=== PATIENT | female | born 1965 | race Caucasian/White ===

== ENCOUNTER 2020-05-10 15:33 | Emergency (ER) | payer MEDICARE ==
[~2020-05-10] VITALS: Ht 152.4 cm; Wt 104.1 kg
[2020-05-10] MEDS ORDERED: ALBUTEROL/IPRATROPIUM 3 ML NEB NEB ONE (16:15)
[2020-05-10] MEDS ORDERED: METHYLPREDNISOLONE SOD SUCC 125 MG/2ML VIAL IV ONE (16:15)
[2020-05-10] MEDS ORDERED: ALBUTEROL/IPRATROPIUM 3 ML NEB ONE (16:23)
[2020-05-10] MEDS ORDERED: METHYLPREDNISOLONE SOD SUCC 125 MG/2ML VIAL ONE (16:23)
[2020-05-10] MEDS ORDERED: COMBIVENT RESPIM4 GM IH ×2 (17:47→18:01)
[2020-05-10] MEDS ORDERED: OZEMPIC1 MG/0.75 SC (17:47)
[2020-05-10] MEDS ORDERED: PROAIR HFA INH8.5 GM (17:47)
[2020-05-10] MEDS ORDERED: CRESTOR10 MG PO (17:47)
[2020-05-10] MEDS ORDERED: SYMBICORT 16010.2 GM INH (17:47)
[2020-05-10] MEDS ORDERED: LISINOPRIL-HCT1 EAC1 (17:47)
[2020-05-10] MEDS ORDERED: HUMALOG MI100 UNIT/3 SQ (17:47)
[2020-05-10] MEDS ORDERED: METOPROLOL TART25 MG PO (17:47)
[2020-05-10] MEDS ORDERED: ESOMEPRAZOLE MA40 MG (17:47)
[2020-05-10] MEDS ORDERED: TRESIBA FL100 UNIT/1 (17:47)
[2020-05-10] MEDS ORDERED: LEVALBUTER1.25 MG/3 INH (17:47)
[2020-05-10] MEDS ORDERED: INVOKANA300 MG (17:48)
[2020-05-10] MEDS ORDERED: VITAMIN B-121000 MC1 PO (17:48)
[2020-05-10] MEDS ORDERED: ABILIFY10 MG PO (17:48)
[2020-05-10] MEDS ORDERED: BUPROPION XL150 MG PO (17:48)
[2020-05-10] MEDS ORDERED: DOXYCYCLINE HY100 MG PO (17:48)
[2020-05-10] MEDS ORDERED: METFORMIN HCL500 M2 PO (17:48)
[2020-05-10] MEDS ORDERED: CELEBREX200 MG PO (17:48)
[2020-05-10] MEDS ORDERED: ALIVE WOMEN'S1 EAC2 (17:48)
[2020-05-10] MEDS ORDERED: LYRICA150 MG PO (17:48)
[2020-05-10] MEDS ORDERED: VASCEPA1 GM (17:48)
[2020-05-10] MEDS ORDERED: VITAMIN D325 MCG (17:48)
[2020-05-10] MEDS ORDERED: CEFTRIAXONE SOD 1 GM/NS 50 ML 50 ML IV ONE (17:59)
[2020-05-10] MEDS ORDERED: AUGMENTIN 500-1 EACH PO (18:00)
[2020-05-10] MEDS ORDERED: CEFTRIAXONE SOD 1 GM VIAL IV ONE (18:00)
[2020-05-10] MEDS ORDERED: PREDNISONE20 MG PO (18:01)
[2020-05-10 18:25] VITALS: BP 146/68
== END 2020-05-10 18:10 | disposition home or self-care (01) ==
LOC: FSED 16:04
DX: J18.9 Pneumonia, unspecified organism (principal); J44.1 Chronic obstructive pulmonary disease with (acute) exacerbation; R06.02 Shortness of breath; E11.65 Type 2 diabetes mellitus with hyperglycemia; I10 Essential (primary) hypertension; Z11.52 Encounter for screening for COVID-19; F17.210 Nicotine dependence, cigarettes, uncomplicated
CPT/HCPCS: 71045; 80053; 82553; 83880; 84484; 85025; 85379; 96374; 99284; J0696; J2930; U0002

== ENCOUNTER 2021-12-22 13:36 | Inpatient (IN) | payer MEDICARE ==
[~2021-12-22] VITALS: Ht 152.4 cm; Wt 98.7 kg
[~2021-12-22 13:36] MED LIST: ABILIFY10 MG PO; ALIVE WOMEN'S1 EAC2; AUGMENTIN 500-1 EACH PO; BUPROPION XL150 MG PO; CELEBREX200 MG PO; COMBIVENT RESPIM4 GM IH; CRESTOR10 MG PO; DOXYCYCLINE HY100 MG PO; ESOMEPRAZOLE MA40 MG; HUMALOG MI100 UNIT/3 SQ; INVOKANA300 MG; LEVALBUTER1.25 MG/3 INH; LISINOPRIL-HCT1 EAC1; LYRICA150 MG PO; METFORMIN HCL500 M2 PO; METOPROLOL TART25 MG PO; OZEMPIC1 MG/0.75 SC; PREDNISONE20 MG PO; PROAIR HFA INH8.5 GM; SYMBICORT 16010.2 GM INH; TRESIBA FL100 UNIT/1; VASCEPA1 GM; VITAMIN B-121000 MC1 PO; VITAMIN D325 MCG
[2021-12-22] MEDS ORDERED: ASPIRIN 325 MG TAB PO ONE (14:00)
[2021-12-22] MEDS ORDERED: IOPAMIDOL 370 MG/ML 100 ML INFUS..BTL INJ ONE (15:08)
[2021-12-22] MEDS ORDERED: ALBUTEROL/IPRATROPIUM 3 ML NEB NEB ONE (15:30)
[2021-12-22] MEDS ORDERED: ALBUTEROL/IPRATROPIUM 3 ML NEB ONE (15:31)
[2021-12-22] MEDS ORDERED: ASPIRIN 325 MG TAB ONE (15:31)
[2021-12-22] MEDS ORDERED: ASPIRIN 81 MG CHEW TAB PO ONE (15:45)
[2021-12-22] MEDS ORDERED: SODIUM CHLORIDE FLUSH 10 ML SYR INJ PRN (15:45)
[2021-12-22] MEDS ORDERED: ONDANSETRON HCL INJ 2MG/ML 2ML 2 MG/ML VIAL IV PRN (15:45)
[2021-12-22] MEDS ORDERED: CEFTRIAXONE 1 GM VIAL ONE (16:18)
[2021-12-22 19:00] VITALS: BP 115/57
[2021-12-22] MEDS ORDERED: DEXTROSE 50% SYRINGE 50 ML IV PRN (19:00)
[2021-12-22] MEDS ORDERED: FUROSEMIDE INJ 10 MG/ML 4 ML VIAL IV ONE (19:20)
[2021-12-22] MEDS: ALBUTEROL SULFATE HFA 8GM INHALATION AEROSOL INH SCH (19:30)
[2021-12-22 20:00] VITALS: BP 114/63
[2021-12-22] MEDS: IPRATROPIUM/ALBUTEROL SULFATE 4 GM INH INH SCH (20:05)
[2021-12-22] MEDS: BUDESONIDE/FORMOTEROL 160/4.5MCG INHALER INH SCH (20:05)
[2021-12-22] MEDS: ACETAMINOPHEN 325 MG TAB PO PRN (20:07)
[2021-12-22 21:00] VITALS: BP 128/59
[2021-12-22] MEDS: SIMVASTATIN 20 MG TAB PO SCH (21:23)
[2021-12-22] MEDS: INSULIN REGULAR, HUMAN 100 UNIT/1 ML SQ SCH (21:26)
[2021-12-22] MEDS: INSULIN GLARGINE 100 UNITS/ML VIAL SQ SCH (21:28)
[2021-12-22 22:00] VITALS: BP 105/61
[2021-12-22 22:04] VITALS: BP 128/59
[2021-12-22 22:49] LABS: CREATINE KINASE MB 0.5 ng/mL (0-5.0)
[2021-12-22 23:00] VITALS: BP 108/67
[2021-12-23] VITALS (18 sets, daily range): BP systolic 91–152; BP diastolic 42–105
[2021-12-23] MEDS: ACETAMINOPHEN 325 MG TAB PO PRN ×2 (06:05→17:43)
[2021-12-23] MEDS: ALBUTEROL SULFATE HFA 8GM INHALATION AEROSOL INH SCH ×4 (07:00→19:00)
[2021-12-23] MEDS: BUDESONIDE/FORMOTEROL 160/4.5MCG INHALER INH SCH ×2 (07:15→19:40)
[2021-12-23] MEDS: IPRATROPIUM/ALBUTEROL SULFATE 4 GM INH INH SCH ×4 (07:15→19:40)
[2021-12-23 07:17] LABS: BASOPHILS % 0.3 % (0.0-1.0); EOSINOPHILS # (AUTO) 0.1 (0.0-0.4); EOSINOPHILS % 0.8 % (0.0-6.0); HEMATOCRIT 37.6 % (34.2-44.1); HEMOGLOBIN 11.5 g/dL (12.0-16.0); LYMPHOCYTES # (AUTO) 0.5 (1.0-3.2); LYMPHOCYTES % 7.7 % (18.0-39.1); MEAN CORPUSCULAR HEMOGLOBIN 28.9 pg (28-32); MEAN CORPUSCULAR HGB CONC 30.6 g/dL (31-35); MEAN CORPUSCULAR VOLUME 94.5 fL (81-99); MONOCYTES # (AUTO) 0.5 (0.2-0.8); MONOCYTES % 7.7 % (4.4-11.3); NEUTROPHILS # (AUTO) 5.1 (2.1-6.9); NEUTROPHILS % 82.7 % (38.7-80.0); PLATELET COUNT 138 x10e3/uL (140-360); RED BLOOD COUNT 3.98 x10e6/uL (3.6-5.1); RED CELL DISTRIBUTION WIDTH 17.1 % (11.7-14.4)
[2021-12-23 07:59] LABS: ALBUMIN 3.3 g/dL (3.5-5.0); ALBUMIN/GLOBULIN RATIO 1.1 (0.8-2.0); ANION GAP 17.9 mmol/L (8-16); CALCIUM 9.3 mg/dL (8.4-10.2); CREATININE, SERUM 0.67 mg/dL (0.57-1.11); POTASSIUM 3.9 mmol/L (3.5-5.1)
[2021-12-23] MEDS: INSULIN REGULAR, HUMAN 100 UNIT/1 ML SQ SCH ×4 (08:12→20:55)
[2021-12-23] MEDS: BUPROPION HCL 150 MG TABCR PO SCH (08:35)
[2021-12-23] MEDS: METOPROLOL TARTRATE 25 MG TAB PO SCH ×2 (08:35→16:46)
[2021-12-23] MEDS: PREGABALIN 75 MG CAP PO SCH ×2 (08:35→16:46)
[2021-12-23] MEDS: CEFTRIAXONE 2 GM in SODIUM CHLORIDE 0.9% 100 ML IV SCH (08:36)
[2021-12-23] MEDS ORDERED: SODIUM CHLORIDE 0.9% 100 ML ONE (08:43)
[2021-12-23 09:18] LABS: CREATINE KINASE MB 0.3 ng/mL (0-5.0)
[2021-12-23 11:06] LABS: INFLUENZAE A&B ANTIGEN (RAPID) NEGATIVE (NEGATIVE)
[2021-12-23 11:07] LABS: RESPIRATORY SYNC. VIRUS NEGATIVE (NEGATIVE)
[2021-12-23] MEDS: FUROSEMIDE INJ 10 MG/ML 4 ML VIAL IV SCH ×2 (11:46→16:46)
[2021-12-23] MEDS: FAMOTIDINE 20 MG TAB PO SCH (11:46)
[2021-12-23] MEDS ORDERED: IOPAMIDOL 370 MG/ML 100 ML INFUS..BTL INJ ONE (15:47)
[2021-12-23] MEDS: ENOXAPARIN SOD INJ 40 MG/0.4 ML SYR SC SCH (16:45)
[2021-12-23 19:25] LABS: CREATINE KINASE MB 0.4 ng/mL (0-5.0)
[2021-12-23] MEDS: SIMVASTATIN 20 MG TAB PO SCH (20:48)
[2021-12-23] MEDS: INSULIN GLARGINE 100 UNITS/ML VIAL SQ SCH (20:56)
[2021-12-24 06:16] VITALS: BP 131/71
[2021-12-24] MEDS: IPRATROPIUM/ALBUTEROL SULFATE 4 GM INH INH SCH ×4 (07:20→19:48)
[2021-12-24] MEDS: ALBUTEROL SULFATE HFA 8GM INHALATION AEROSOL INH SCH ×4 (07:20→19:48)
[2021-12-24 07:36] LABS: BASOPHILS % 0.6 % (0.0-1.0); EOSINOPHILS # (AUTO) 0.1 (0.0-0.4); EOSINOPHILS % 0.7 % (0.0-6.0); HEMOGLOBIN 11.5 g/dL (12.0-16.0); LYMPHOCYTES # (AUTO) 0.6 (1.0-3.2); LYMPHOCYTES % 8.6 % (18.0-39.1); MEAN CORPUSCULAR HEMOGLOBIN 28.6 pg (28-32); MEAN CORPUSCULAR HGB CONC 31.9 g/dL (31-35); MEAN CORPUSCULAR VOLUME 89.6 fL (81-99); MONOCYTES # (AUTO) 0.6 (0.2-0.8); MONOCYTES % 8.7 % (4.4-11.3); NEUTROPHILS # (AUTO) 5.4 (2.1-6.9); NEUTROPHILS % 80.7 % (38.7-80.0); PLATELET COUNT 159 x10e3/uL (140-360); RED BLOOD COUNT 4.02 x10e6/uL (3.6-5.1); RED CELL DISTRIBUTION WIDTH 16.6 % (11.7-14.4)
[2021-12-24] MEDS: BUDESONIDE/FORMOTEROL 160/4.5MCG INHALER INH SCH ×2 (07:40→19:48)
[2021-12-24] MEDS: FAMOTIDINE 20 MG TAB PO SCH ×2 (07:44→09:42)
[2021-12-24] MEDS: ACETAMINOPHEN 325 MG TAB PO PRN ×2 (07:52→20:28)
[2021-12-24] MEDS: INSULIN REGULAR, HUMAN 100 UNIT/1 ML SQ SCH ×4 (07:55→20:28)
[2021-12-24 08:29] LABS: ALBUMIN 3.1 g/dL (3.5-5.0); ALBUMIN/GLOBULIN RATIO 0.8 (0.8-2.0); ANION GAP 19.6 mmol/L (8-16); CALCIUM 9.3 mg/dL (8.4-10.2); CREATININE, SERUM 0.68 mg/dL (0.57-1.11); POTASSIUM 4.6 mmol/L (3.5-5.1)
[2021-12-24 08:31] VITALS: BP 114/58
[2021-12-24] MEDS: BUPROPION HCL 150 MG TABCR PO SCH (09:41)
[2021-12-24] MEDS: CEFTRIAXONE 2 GM in SODIUM CHLORIDE 0.9% 100 ML IV SCH (09:41)
[2021-12-24] MEDS: FUROSEMIDE INJ 10 MG/ML 4 ML VIAL IV SCH ×2 (09:42→17:40)
[2021-12-24] MEDS: METOPROLOL TARTRATE 25 MG TAB PO SCH ×2 (09:42→17:00)
[2021-12-24] MEDS: PREGABALIN 75 MG CAP PO SCH ×2 (09:42→17:39)
[2021-12-24 12:29] VITALS: BP 108/57
[2021-12-24 16:46] VITALS: BP 103/57
[2021-12-24] MEDS: ENOXAPARIN SOD INJ 40 MG/0.4 ML SYR SC SCH (17:39)
[2021-12-24 20:00] VITALS: BP 118/51
[2021-12-24] MEDS: SIMVASTATIN 20 MG TAB PO SCH (20:28)
[2021-12-24] MEDS: INSULIN GLARGINE 100 UNITS/ML VIAL SQ SCH (20:28)
[2021-12-24 21:00] VITALS: BP 118/51
[2021-12-25] VITALS (8 sets, daily range): BP systolic 103–121; BP diastolic 50–72
[2021-12-25 05:30] LABS: ANION GAP 16.4 mmol/L (8-16); CALCIUM 9.3 mg/dL (8.4-10.2); CREATININE, SERUM 0.66 mg/dL (0.57-1.11); POTASSIUM 3.4 mmol/L (3.5-5.1)
[2021-12-25] MEDS: IPRATROPIUM/ALBUTEROL SULFATE 4 GM INH INH SCH ×4 (06:32→19:53)
[2021-12-25] MEDS: BUDESONIDE/FORMOTEROL 160/4.5MCG INHALER INH SCH ×2 (06:32→19:53)
[2021-12-25] MEDS: ALBUTEROL SULFATE HFA 8GM INHALATION AEROSOL INH SCH ×4 (07:00→19:00)
[2021-12-25] MEDS: METOPROLOL TARTRATE 25 MG TAB PO SCH ×2 (09:00→17:19)
[2021-12-25] MEDS: PREGABALIN 75 MG CAP PO SCH ×2 (09:04→17:18)
[2021-12-25] MEDS: FAMOTIDINE 20 MG TAB PO SCH (09:04)
[2021-12-25] MEDS: FUROSEMIDE INJ 10 MG/ML 4 ML VIAL IV SCH ×2 (09:04→17:19)
[2021-12-25] MEDS: BUPROPION HCL 150 MG TABCR PO SCH (09:05)
[2021-12-25] MEDS: INSULIN REGULAR, HUMAN 100 UNIT/1 ML SQ SCH ×4 (09:07→20:55)
[2021-12-25] MEDS ORDERED: POTASSIUM CHLORIDE 10MEQ EA PO ONE (15:00)
[2021-12-25] MEDS: ENOXAPARIN SOD INJ 40 MG/0.4 ML SYR SC SCH (17:18)
[2021-12-25] MEDS: SIMVASTATIN 20 MG TAB PO SCH (20:51)
[2021-12-25] MEDS: INSULIN GLARGINE 100 UNITS/ML VIAL SQ SCH (20:56)
[2021-12-26] VITALS (8 sets, daily range): BP systolic 114–130; BP diastolic 49–70
[2021-12-26] MEDS: ACETAMINOPHEN 325 MG TAB PO PRN (05:09)
[2021-12-26 06:37] LABS: BASOPHILS % 0.3 % (0.0-1.0); EOSINOPHILS # (AUTO) 0.1 (0.0-0.4); EOSINOPHILS % 3.5 % (0.0-6.0); HEMATOCRIT 33.8 % (34.2-44.1); HEMOGLOBIN 10.3 g/dL (12.0-16.0); LYMPHOCYTES # (AUTO) 0.5 (1.0-3.2); LYMPHOCYTES % 12.3 % (18.0-39.1); MEAN CORPUSCULAR HEMOGLOBIN 28.5 pg (28-32); MEAN CORPUSCULAR HGB CONC 30.5 g/dL (31-35); MEAN CORPUSCULAR VOLUME 93.6 fL (81-99); MONOCYTES # (AUTO) 0.4 (0.2-0.8); NEUTROPHILS # (AUTO) 2.7 (2.1-6.9); NEUTROPHILS % 72.4 % (38.7-80.0); PLATELET COUNT 176 x10e3/uL (140-360); RED BLOOD COUNT 3.61 x10e6/uL (3.6-5.1); RED CELL DISTRIBUTION WIDTH 16.1 % (11.7-14.4)
[2021-12-26] MEDS: IPRATROPIUM/ALBUTEROL SULFATE 4 GM INH INH SCH ×4 (06:37→19:52)
[2021-12-26] MEDS: BUDESONIDE/FORMOTEROL 160/4.5MCG INHALER INH SCH ×2 (06:37→19:52)
[2021-12-26] MEDS: ALBUTEROL SULFATE HFA 8GM INHALATION AEROSOL INH SCH ×4 (06:38→17:58)
[2021-12-26 06:55] LABS: ALBUMIN 2.7 g/dL (3.5-5.0); ALBUMIN/GLOBULIN RATIO 0.7 (0.8-2.0); ANION GAP 20.4 mmol/L (8-16); CREATININE, SERUM 0.67 mg/dL (0.57-1.11); POTASSIUM 3.4 mmol/L (3.5-5.1)
[2021-12-26] MEDS: METOPROLOL TARTRATE 25 MG TAB PO SCH ×2 (09:00→16:59)
[2021-12-26] MEDS: FUROSEMIDE INJ 10 MG/ML 4 ML VIAL IV SCH ×2 (09:09→16:59)
[2021-12-26] MEDS: BUPROPION HCL 150 MG TABCR PO SCH (09:10)
[2021-12-26] MEDS: PREGABALIN 75 MG CAP PO SCH ×2 (09:10→16:58)
[2021-12-26] MEDS ORDERED: POTASSIUM CHLORIDE 10MEQ EA PO ONE (10:30)
[2021-12-26] MEDS: INSULIN REGULAR, HUMAN 100 UNIT/1 ML SQ SCH ×4 (10:35→21:23)
[2021-12-26] MEDS: IBUPROFEN 600 MG TAB PO PRN (14:22)
[2021-12-26] MEDS: SIMVASTATIN 20 MG TAB PO SCH (20:59)
[2021-12-26] MEDS ORDERED: INSULIN GLARGINE 100 UNITS/ML VIAL SQ SCH (21:00)
[2021-12-27] VITALS (8 sets, daily range): BP systolic 112–134; BP diastolic 49–63
[2021-12-27] MEDS: ALBUTEROL SULFATE HFA 8GM INHALATION AEROSOL INH SCH ×4 (07:00→19:00)
[2021-12-27] MEDS: BUDESONIDE/FORMOTEROL 160/4.5MCG INHALER INH SCH ×2 (07:09→19:25)
[2021-12-27] MEDS: IPRATROPIUM/ALBUTEROL SULFATE 4 GM INH INH SCH ×4 (07:09→19:25)
[2021-12-27] MEDS: INSULIN REGULAR, HUMAN 100 UNIT/1 ML SQ SCH ×4 (07:30→20:49)
[2021-12-27] MEDS: FUROSEMIDE INJ 10 MG/ML 4 ML VIAL IV SCH ×2 (08:41→16:46)
[2021-12-27] MEDS ORDERED: LIDOCAINE HCL 1% LOCAL INJ 20 ML VIAL ONE (09:41)
[2021-12-27] MEDS ORDERED: MIDAZOLAM HCL 2 MG/2 ML VIAL ONE (09:51)
[2021-12-27] MEDS ORDERED: FENTANYL CITRATE/PF 100MCG/2 ML INJ ONE (09:52)
[2021-12-27] MEDS: PREGABALIN 75 MG CAP PO SCH ×2 (10:58→16:48)
[2021-12-27] MEDS: BUPROPION HCL 150 MG TABCR PO SCH (10:58)
[2021-12-27] MEDS: METOPROLOL TARTRATE 25 MG TAB PO SCH ×2 (10:58→16:48)
[2021-12-27] MEDS: FAMOTIDINE 20 MG TAB PO SCH (10:58)
[2021-12-27] MEDS ORDERED: ONDANSETRON HCL 4 MG ORAL DISINTEGRATING TAB PO PRN (14:45)
[2021-12-27] MEDS: IBUPROFEN 600 MG TAB PO PRN (15:10)
[2021-12-27] MEDS ORDERED: LEVOFLOXACIN 500 MG TAB PO SCH (17:30)
[2021-12-27] MEDS ORDERED: AZITHROMYCIN 250 MG TAB PO SCH (20:00)
[2021-12-27] MEDS: SIMVASTATIN 20 MG TAB PO SCH (20:41)
[2021-12-27] MEDS ORDERED: INSULIN GLARGINE 100 UNITS/ML VIAL SQ SCH (21:00)
[2021-12-27] MEDS: INSULIN LISPRO SQ SCH (21:00)
[2021-12-27] MEDS: INSULIN LISPRO PROTAMINE SQ SCH (21:00)
[2021-12-28 01:24] VITALS: BP 153/59
[2021-12-28] MEDS: IBUPROFEN 600 MG TAB PO PRN ×2 (01:31→09:38)
[2021-12-28 05:23] VITALS: BP 112/46
[2021-12-28 06:38] LABS: BASOPHILS % 0.5 % (0.0-1.0); EOSINOPHILS # (AUTO) 0.1 (0.0-0.4); EOSINOPHILS % 2.7 % (0.0-6.0); HEMATOCRIT 35.1 % (34.2-44.1); HEMOGLOBIN 10.6 g/dL (12.0-16.0); LYMPHOCYTES # (AUTO) 0.6 (1.0-3.2); LYMPHOCYTES % 13.5 % (18.0-39.1); MEAN CORPUSCULAR HEMOGLOBIN 28.3 pg (28-32); MEAN CORPUSCULAR HGB CONC 30.2 g/dL (31-35); MEAN CORPUSCULAR VOLUME 93.9 fL (81-99); MONOCYTES # (AUTO) 0.4 (0.2-0.8); MONOCYTES % 9.4 % (4.4-11.3); NEUTROPHILS % 72.9 % (38.7-80.0); PLATELET COUNT 181 x10e3/uL (140-360); RED BLOOD COUNT 3.74 x10e6/uL (3.6-5.1); RED CELL DISTRIBUTION WIDTH 16.1 % (11.7-14.4)
[2021-12-28] MEDS: ALBUTEROL SULFATE HFA 8GM INHALATION AEROSOL INH SCH ×2 (07:00→11:00)
[2021-12-28 07:08] LABS: ANION GAP 15.3 mmol/L (8-16); CALCIUM 9.5 mg/dL (8.4-10.2); CREATININE, SERUM 0.72 mg/dL (0.57-1.11); POTASSIUM 3.3 mmol/L (3.5-5.1)
[2021-12-28] MEDS: BUDESONIDE/FORMOTEROL 160/4.5MCG INHALER INH SCH (07:15)
[2021-12-28] MEDS: IPRATROPIUM/ALBUTEROL SULFATE 4 GM INH INH SCH ×2 (07:15→10:46)
[2021-12-28 08:00] VITALS: BP 142/63
[2021-12-28 08:12] VITALS: BP 142/63
[2021-12-28] MEDS: INSULIN REGULAR, HUMAN 100 UNIT/1 ML SQ SCH (08:30)
[2021-12-28] MEDS: FAMOTIDINE 20 MG TAB PO SCH (08:35)
[2021-12-28] MEDS: FUROSEMIDE INJ 10 MG/ML 4 ML VIAL IV SCH (08:36)
[2021-12-28] MEDS: PREGABALIN 75 MG CAP PO SCH (08:36)
[2021-12-28] MEDS: BUPROPION HCL 150 MG TABCR PO SCH (08:36)
[2021-12-28] MEDS: INSULIN LISPRO SQ SCH (08:37)
[2021-12-28] MEDS: INSULIN LISPRO PROTAMINE SQ SCH (08:37)
[2021-12-28] MEDS: METOPROLOL TARTRATE 25 MG TAB PO SCH (08:38)
[2021-12-28] MEDS ORDERED: FUROSEMIDE40 MG PO (09:58)
[2021-12-28] MEDS ORDERED: FUROSEMIDE 40 MG TAB PO SCH ×2 (10:00→17:00)
[2021-12-28] MEDS ORDERED: LEVOFLOXACIN500 MG PO (10:36)
[2021-12-28] MEDS ORDERED: POTASSIUM CHLORIDE 20 MEQ TAB CR PO ONE (11:00)
== END 2021-12-28 11:50 | disposition home or self-care (01) | DRG 823 ==
LOC: FSED 13:59 → ERHOLD 15:37 → ICU 17:41 → MED/SURG3 12-24 01:19
PROVIDERS: ADMIT Internal Medicine; ATTEND Internal Medicine
PROC: 07BD3ZX Excision of Aortic Lymphatic, Percutaneous Approach, Diagnostic (ICD-10-PCS; principal; 2021-12-27)
DX: C82.03 Follicular lymphoma grade I, intra-abdominal lymph nodes (principal); J18.9 Pneumonia, unspecified organism; J44.0 Chronic obstructive pulmonary disease with (acute) lower respiratory infection; J44.1 Chronic obstructive pulmonary disease with (acute) exacerbation; I50.32 Chronic diastolic (congestive) heart failure; D69.6 Thrombocytopenia, unspecified; R16.2 Hepatomegaly with splenomegaly, not elsewhere classified; I11.0 Hypertensive heart disease with heart failure; E11.9 Type 2 diabetes mellitus without complications; K21.9 Gastro-esophageal reflux disease without esophagitis; D64.9 Anemia, unspecified; E78.5 Hyperlipidemia, unspecified; R06.03 Acute respiratory distress; E78.00 Pure hypercholesterolemia, unspecified; F32.A Depression, unspecified; Z87.891 Personal history of nicotine dependence; Z88.0 Allergy status to penicillin; Z83.3 Family history of diabetes mellitus; Z82.49 Family history of ischemic heart disease and other diseases of the circulatory system; Z79.4 Long term (current) use of insulin; Z79.84 Long term (current) use of oral hypoglycemic drugs
CPT/HCPCS: 36415; 38505; 71045; 71046; 71260; 74177; 74470; 77012; 80048; 80053; 82550; 82553; 82948; 83036; 83605; 83615; 83880; 84484; 85025; 85379; 85651; 86140; 87040; 87071; 87102; 87116; 87205; 87206; 87400; 87420; 88304; 88305; 93005; 93306; 94664; 94799; 96372; 99284; J0456; J0696; J1650; J1815; J1817; J1940; J2001; J2250; J2543; J3010; J7050; Q9967